=== PATIENT | male | born 1995 | race Two or more races ===

== ENCOUNTER 2021-12-27 01:31 | Emergency (ER) | payer SELFPAY ==
[~2021-12-27] VITALS: Ht 190.5 cm; Wt 120.3 kg
[2021-12-27 01:33] VITALS: BP 128/100
[2021-12-27] MEDS ORDERED: NS 1,000 ML IV ONE (03:10)
[2021-12-27 03:57] LABS: BASO # 0.1 10^3/uL (0.0-0.2); BASO % 0.5 % (0.0-1.0); EOS # 0.1 10^3/uL (0.0-0.5); EOS % 0.6 % (0.0-3.0); HEMATOCRIT 41.1 % (42.0-52.0); LYMPH # 0.8 10^3/uL (1.5-5.0); LYMPH % 6.6 % (24.0-44.0); MEAN CORPUSCULAR HEMOGLOBIN 29.7 pg (27.0-33.0); MEAN CORPUSCULAR HGB CONC 34.1 g/dl (32.0-36.5); MEAN CORPUSCULAR VOLUME 87.1 fl (80.0-96.0); MONO # 0.6 10^3/uL (0.0-0.8); MONO % 5.1 % (2.0-8.0); NEUTROPHILS # 10.4 10^3/uL (1.5-8.5); NEUTROPHILS % 86.8 % (36.0-66.0); PLATELET COUNT, AUTOMATED 157 10^3/uL (150-450); RED BLOOD COUNT 4.72 10^6/uL (4.30-6.10)
[2021-12-27] MEDS ORDERED: ONDANSETRON 4MG/2ML VIAL IV ONE (04:00)
[2021-12-27] MEDS ORDERED: KETOROLAC 30 MG/ML 1ML VIAL IV ONE (04:00)
[2021-12-27] MEDS ORDERED: CIPR-249 PO (04:52)
[2021-12-27] MEDS ORDERED: KETO10TAB PO (04:52)
[2021-12-27] MEDS ORDERED: FLOM0.4C39 PO (04:52)
[2021-12-27] MEDS ORDERED: TAMSULOSIN 0.4 MG CAP PO ONE (05:00)
[2021-12-27] MEDS ORDERED: OXYCODONE/APAP 5MG/325MG(BULK FOR ED) 1 TABLET PO ONE (05:00)
== END 2021-12-27 05:28 | disposition home or self-care (01) ==
LOC: M ED 01:31
DX: N20.1 Calculus of ureter (principal); N13.1 Hydronephrosis with ureteral stricture, not elsewhere classified; F17.200 Nicotine dependence, unspecified, uncomplicated
CPT/HCPCS: 74176; 80047; 81001; 85025; 87086; 96361; 96374; 96375; 99282; J1885; J2405